=== PATIENT | female | born 1990 | race Caucasian/White ===

== ENCOUNTER 2019-01-19 19:45 | Inpatient (IN) | payer MEDICAID, OTHER, SELFPAY ==
[~2019-01-19 19:45] MED LIST: Lidocaine 2% MPF 10 ML AMP (For Epidural Use) ONE
[2019-01-19] MEDS ORDERED: Promethazine HCl 25 MG/ML VIAL IM PRN (22:03)
[2019-01-19] MEDS ORDERED: hydrALAZINE 20 MG/ML VIAL SLOW IVP PRN (22:03)
[2019-01-19] MEDS ORDERED: NS / Oxytocin 40 units/1000ml 1,000 ML IV PRN (22:03)
[2019-01-19] MEDS ORDERED: Lidocaine 1% (PF) 30 ML VIAL SC PRN (22:03)
[2019-01-19] MEDS ORDERED: Ondansetron PF 4 MG/2 ML Vial IVP PRN (22:03)
[2019-01-19 22:08] VITALS: BMI 29.4
--- NOTE | 2019-01-19 22:09 | PDOC.FPROB ---
FMR OB H&P: HPI - History of Present Illness Chief Complaint: IOL History of Present Illness: 28 y/o F , at 39.1 (as of 01/20) weeks gestation here for IOL. Denies LOF, vaginal bleeding or decreased movements. C/o thick vaginal mucus like discharge. Pt states she wants an epidural for pain management. Primary Care Physician: PNC FMR OB H&P: Current - Care : 3 Para: 2 Gestational age: 39.1 wks Due date: 01/26/19 Dating Criteria: LMP confirmed by 9 week sono - OB Labs Blood type: O RH: positive Antibody Screen: negative HIV: negative RPR: negative HepBsAg: negative Rubella: immune Quad screen: negative Gonorrhea: negative Chlamydia: negative GBS: negative H&H: 10.9/31.8 - Anatomy Survey Anatomy survey: hadlock 60.7 FMR OB H&P: History - Past Medical History PMH: none - OB History OB History: - Surgical History Sx History: none - Social History Social History: denies etoh, drugs or tobacco use - Family History Family History: negative FMR OB H&P: Medications - Current Home Medications: Medication Instructions Recorded Confirmed Type Vitamin 1 tablet PO DAILY 11/18/16 01/19/19 History Docusate Calcium [Surfak] 240 mg PO BID #30 cap 01/21/19 Rx Ibuprofen [Motrin] 800 mg PO 0100,0900,1700 #30 tab 01/21/19 Rx Allergies/Adverse Reactions: Allergies Allergy/AdvReac Type Severity Reaction Status Date / Time dexamethasone Allergy Anaphylaxis Verified 01/19/19 21:57 FMR OB H&P: ROS - Review of Systems General: denies: fever/chills, recent trauma Eyes: denies: vision changes ENT: denies: nasal congestion, rhinorrhea, sore throat Cardiovascular: denies: chest pain, palpitation, edema Respiratory: denies: cough, congestion, shortness of breath Gastrointestinal: denies: abdominal pain, nausea, vomiting, diarrhea Genitourinary (Female): reports: vaginal discharge, contractions. denies: incontinence, dysuria, vaginal bleeding Musculoskeletal: denies: pain, redness Neurologic: denies: numbness, syncope, seizures, weakness, loss of counsciousness Hematologic/Lymphatic: denies: prolonged or excessive bleeding, enlarged lymph nodes Psychological: denies: depression, anxiety FMR OB H&P: Vital Signs - Maternal Vital signs: Vital Signs - First Documented Temp Pulse Resp BP 98.8 F 68 18 111/67 01/19/19 21:54 01/19/19 21:54 01/19/19 21:54 01/19/19 21:54 - Heart Tones Baseline: 155 Variability: moderate Acceleration: present Deceleration: absent [place] contractions every: not sánchez FMR OB H&P: Physical Exam - Physical Exam General: NAD, awake, alert and oriented HEENT: normocephalic and atraumatic, PERRLA, EOMI, MMM, conjunctiva clear, no scleral icterus, grossly normal vision, grossly normal hearing, oropharynx clear , good dention Neck: supple, FROM, trachea midline, no LAD, no JVD Chest: non-tender to palpation, no lesions Heart: RRR, normal S1/S2, no murmurs/rubs/gallops, pulses present, no edema General: CTAB, no respiratory distress, good air movement, no rales/rhonchi, no wheezing, no retractions Abdomen: soft, gravid, non-tender, bowel sound present, no masses, no hernias Musculoskeletal: normal gait and station, pulses present, FROM in all four extremities, no misalignment/asymmetry, no atrophy Neurological: cranial nerves II through XII intact, sensation to pain,touch and proprioception grossly normal, no clonus, no tremor, no focal deficit Skin: no rash, good tugor, capillary refill <2 seconds, no jaundice Lymphatic: no unusual bruising or bleeding, no purpura, no petechia, no LAD Psychiatric: intact recent and remote memory, good judgement and insight, normal mood and affect - Pelvic Exam Vulva: normal hair distribution, appropriate katharina stage, no masses, no lesions , no discharge, no blood, normal rugae SVE: 3/80/-2 Hernandez score: 9 Membranes: intact Presentation: vertex FMR OB H&P: A/P - Problem List (1) Term Status: Acute Code(s): Z34.90 - ENCNTR FOR SUPRVSN OF NORMAL , UNSP, UNSP TRIMESTER (2) Elective induction of labor planned Status: Acute Code(s): [id number] - Disposition: Pt stable admitted to inpatient for anticipated at least 2 midnights Discussion: Date/Time: 01/19/192208 28 y/o , @ 39.1 weeks gestation admitted to L&D for eIOL. 1. IUP @ 39.1 weeks -GBS negative - SVE /-2 @ 2215 on 01/19/19 - FHT's 155 baseline 2. eIOL - Start Pitocin - cervical check Q4H - Continuous monitoring This H&P was discussed with Dr. Toledo who agree with the above documentation and plan. Addendum - Attending - Attending Attestation Date/Time: 01/23/19958 I personally evaluated the patient and discussed the management with Dr. Astorga I agree with the History, Examination, Assessment and Plan documented above with any addition or exceptions noted below. 28 yo at 39.1 undergoing elective induction of labor. Start pitocin for labor induction. Titrate per protocol GBS negative Cat I FHT Anticipate
[2019-01-19] MEDS ORDERED: NS w/ Oxytocin 10 units 500 ML IV SCH (22:15)
[2019-01-19] MEDS: Lactated Ringer's 1,000 ML IV SCH (22:47)
[2019-01-19 22:50] LABS: Hemoglobin 13.2 g/dL (12.0-16.0); Mean Corpuscular HGB CONC 35.3 g/dL (32.0-36.0); Mean Corpuscular Hemoglobin 32.4 pg (27.0-31.0); Mean Corpuscular Volume 91.8 fL (78.0-98.0); Mean Platelet Volume 9.3 fL (7.4-10.4); Platelet Count 200 thou/uL (130-400); RBC Distribution Width 11.1 % (11.5-14.5); Red Blood Cell (RBC) Count 4.08 mill/uL (4.20-5.40); White Blood Cell (WBC) Count 9.8 thou/uL (4.8-10.8)
[2019-01-19 23:36] LABS: HBSAg Index 0.24 S/CO (0-0.99); Hep B Surf Ag Non-Reactive S/CO (NonReactive); Syphilis Antibody Nonreactive (Nonreactive); Syphilis Antibody Index 0.04 S/CO (<1.00 Non-Reactive)
--- NOTE | 2019-01-20 02:09 | PDOC.LDPN ---
Labor & Delivery Progress Note - Subjective Subjective: comfortable, no concerns - Objective Vital signs reviewed and normal: yes General: NAD, resting, breathing through contractions Uterine fundus: non tender SVE: Dr. Astorga Dilation: 4 Effacement: 90% Station: -1 FHT: category 1 (130 FHT baseline, mod variabilty, acels present. No decels ), variability present [place] contractions every: 2 minutes Other exam findings: membranes intact - Assessment (1) Term Code(s): Z34.90 - ENCNTR FOR SUPRVSN OF NORMAL , UNSP, UNSP TRIMESTER Current Visit: Yes Status: Acute (2) Elective induction of labor planned Code(s): BAG3797 - Current Visit: Yes Status: Acute Plan: continue plan of care, pitocin for augmentation -: 28 y/o , @ 39.1 weeks gestation admitted to L&D for eIOL. 1. IUP @ 39.1 weeks -GBS negative - SVE /-1 @ 0220 on 01/20/19 - Cat 1 strip: FHT's 130 baseline, mod variability, acels present and no decels. - Ctx Q2min - Pit at 6 2. eIOL - continue current Pitocin dose - cervical check Q2H - Continuous monitoring - AROM in 2 hours if no SROM
[2019-01-20] MEDS ORDERED: Fentanyl 4 mcg/Bup 0.1% Cadd 100 ML ONE (03:28)
[2019-01-20] MEDS ORDERED: Lidocaine 1% (PF) 30 ML VIAL ONE (04:04)
[2019-01-20] MEDS ORDERED: NS / Oxytocin 40 units/1000ml 1,000 ML ONE (04:04)
[2019-01-20] MEDS ORDERED: Fentanyl 100 MCG/2 ML VIAL ONE (04:05)
[2019-01-20] MEDS ORDERED: Acetaminophen 325 MG TAB PO PRN (04:21)
[2019-01-20] MEDS ORDERED: Lactated Ringer's 500 ML IV PRN (04:21)
[2019-01-20] MEDS ORDERED: Promethazine HCl 25 MG/ML VIAL IM PRN (04:21)
[2019-01-20] MEDS ORDERED: ePHEDrine/0.9% NaCl/PF SYRINGE 50 mg/10 ml SLOW IVP PRN (04:21)
[2019-01-20] MEDS ORDERED: Ondansetron PF 4 MG/2 ML Vial IVP PRN (04:21)
[2019-01-20] MEDS ORDERED: diphenhydrAMINE 50 MG/ML VIAL IVP PRN (04:21)
[2019-01-20] MEDS ORDERED: Naloxone HCl 0.4 mg/ml Vial IVP PRN ×2 (04:21)
[2019-01-20] MEDS: Lactated Ringer's 1,000 ML IV SCH ×3 (04:22→23:31)
[2019-01-20] MEDS ORDERED: Communication Order-Pharmacy FS SCH (04:30)
[2019-01-20] MEDS ORDERED: Fentanyl 4 mcg/Bupivacaine 0.1% Cassette 100 ML EPIDURAL SCH (04:30)
--- NOTE | 2019-01-20 04:57 | PDOC.OPDEL ---
OB Operative/Delivery Note Pre-Delivery Diagnosis: elective induction Procedure/Post Delivery Dx: spontaneous vaginal delivery Anesthesia: epidural - Additional Findings/Plan Compilations/Other Findings: This is 28 y/o F @ 39.1 wks who delivered a viable F at 0428. Following an uneventful antepartum course, a vigorous female was delivered over an intact perineum in the occipitoanterior position with nuchal arm. Anterior Shoulder and then remainder of the body delivered. No nuchal cord. The head was held down and mouth and nares were bulb suctioned. Cord clamped after delayed cord clamping and cut and cord blood collected. Placenta delivered intact in the Prater presentation with a 3 vessel cord noted. Bimanual massage was performed and the fundus was firm. The cervix and vagina were inspected and found to be free of lacerations. Infant went to nursery in good condition for routine care. Apgars were 9/9 at 1 & 5 minutes, respectively. Patient tolerated delivery well and went to after routine recovery/ care. Post delivery plan: routine recovery Addendum - Attending - Attending Attestation Date/Time: 01/23/19 9274 I was present for and assisted in the entire uncomplicated preformed by Kathleen Astorga and Izzy. I agree with documented findings as above.
[2019-01-20] MEDS ORDERED: Milk Of Magnesia 30 ML UDCUP PO PRN (08:51)
[2019-01-20] MEDS ORDERED: Adacel (T-DAP) 0.5 ML SYRINGE IM ONE (08:51)
[2019-01-20] MEDS ORDERED: Bisacodyl 10 MG SUPP PR PRN (08:51)
[2019-01-20] MEDS ORDERED: Ferrous Sulfate 325 MG TAB PO SCH (09:00)
[2019-01-20] MEDS: Ibuprofen 800 MG TAB PO SCH ×2 (10:03→17:26)
[2019-01-20] MEDS: Docusate Calcium (SURFAK) 240 MG CAP PO SCH ×2 (10:03→21:19)
[2019-01-20] MEDS ORDERED: Lidocaine 2% MPF 10 ML AMP (For Epidural Use) ONE (10:58)
[2019-01-20] MEDS: Ferrous Sulfate 325 MG TAB PO SCH (17:26)
[2019-01-20] MEDS ORDERED: Acetaminophen 500 MG TAB PO PRN (20:56)
[2019-01-21] MEDS: Ibuprofen 800 MG TAB PO SCH ×2 (00:31→09:57)
[2019-01-21 05:13] LABS: Hemoglobin 11.4 g/dL (12.0-16.0)
[2019-01-21] MEDS: Lactated Ringer's 1,000 ML IV SCH ×2 (05:46→14:39)
[2019-01-21 09:05] VITALS: BP 113/57; TEMP 98.4
--- NOTE | 2019-01-21 09:38 | PDOC.PP ---
Post Progress Note Post Day #: 1 Subjective: 28 yo ->3 pp day 1 via . All PP milestones met and pain controlled with ibuprofen. PO intake tolerated: yes Flatus: yes Ambulation: yes Vital Signs (12 hours) Temp Pulse Resp BP Pulse Ox 01/21/19 09:03 98.4 F 52 L 14 113/57 L 97 01/21/19 04:45 97.8 F 50 L 18 104/66 01/21/19 00:26 97.4 F L 56 L 18 102/58 L Weight Weight 80.286 kg - Physical Examination General: NAD Cardiovascular: no m/r/g, RRR Respiratory: clear to auscultation bilaterally, non-labored breathing Abdominal: + bowel sounds, no distention, appropriately TTP Extremities: negative homans (B) Skin: no rash Neurological: no gross focal deficits Psychiatric: normal affect Result Diagrams: 01/21/19 04:57 Additional Labs: Post Labs Blood Type O POSITIVE 01/19/19 22:26 Hep Bs Antigen Non-Reactive S/CO (NonReactive) 01/19/19 22:26 (1) Normal delivery at term Code(s): O80 - ENCOUNTER FOR FULL-TERM UNCOMPLICATED DELIVERY Status: Acute Comment: Continue routine care -pain control with ibuprofen -d/c home this afternoon -f/u with clinic in 2 weeks - Assessment/Plan -d/c home this afternoon -f/u with clinic in 2 weeks Addendum - Attending - Attending Attestation Date/Time: 01/21/19 1044 I personally evaluated the patient and discussed the management with Dr. Magana I agree with the History, Examination, Assessment and Plan documented above with any addition or exceptions noted below - Patient without complaints. Ambulating/voiding. Afebrile VSS. A/P: 1) PPD#1 s/p - doing well. Plan to d/ c home.
[2019-01-21] MEDS: Ferrous Sulfate 325 MG TAB PO SCH (09:56)
[2019-01-21] MEDS: Docusate Calcium (SURFAK) 240 MG CAP PO SCH (09:56)
== END 2019-01-21 14:25 | disposition home or self-care (01) | DRG 807 ==
LOC: L&D 21:22 → 3SW 01-20 07:20
PROVIDERS: ADMIT Family Medicine; ATTEND Family Medicine
PROC: 10E0XZZ Delivery of Products of Conception, External Approach (ICD-10-PCS; principal; 2019-01-20)
PROC: 10907ZC Drainage of Amniotic Fluid, Therapeutic from Products of Conception, Via Natural or Artificial Opening (ICD-10-PCS; 2019-01-20)
PROC: 3E033VJ Introduction of Other Hormone into Peripheral Vein, Percutaneous Approach (ICD-10-PCS; 2019-01-20)
DX: O80 Encounter for full-term uncomplicated delivery (principal); Z37.0 Single live birth; Z3A.39 39 weeks gestation of pregnancy
CPT/HCPCS: 36415; 85014; 85018; 85027; 86780; 86850; 86900; 86901; 87340; J2001; J2590; J3010

== ENCOUNTER 2021-01-27 10:59 | Emergency (ER) | payer MEDICAID ==
[2021-01-27] MEDS ORDERED: Ketorolac Tromethamine 30 MG/ML VIAL ONE (11:45)
[2021-01-28 07:52] LABS: SARS-CoV-2 PCR by NAA DETECTED (NotDetected)
== END 2021-01-27 14:00 | disposition home or self-care (01) ==
LOC: ERS 10:59
DX: U07.1 COVID-19 (principal)
CPT/HCPCS: 71045; 93005; 96372; J1885; U0003; U0005